=== PATIENT | female | born 1965 | race Caucasian/White ===

== ENCOUNTER 2024-09-28 21:42 | Inpatient (IN) | payer MEDICARE ==
[2024-09-28] MEDS: PROVENTIL 2.5 MG/3 ML NEB IH PRN (22:26)
--- NOTE | 2024-09-28 23:12 | PCM.HP ---
History of Present Illness - Chief Complaint Chief Complaint: Shortness of breath Date: 09/28/24 History of Present Illness: is a 59 year old female Past medical history significant for asthma/COPD, home oxygen 2 L as per need only, hypertension who initially p resented to [facility] ER for shortness of breath for last 5 days. Patient told me she started having fever for 3 days with productive cough. She did complain of some nausea vomiting but no diarrhea. She was desaturating the ER and has to be placed on oxygen. As far as her lab workup concern it was remarkable for leukocytosis of WBCs around 14. Chest x-ray significant for left lower lobe pneumonia and she was positive for influenza A. At the time of my encounter she was on 6 L oxygen was in respiratory distress but denied having any chest pain., Son was at bedside discussed plan of care in detail - Review of Systems All Other Systems: Reviewed and Negative Medications & Allergies Allergies/Adverse Reactions: Allergies Allergy/AdvReac Type Severity Reaction Status Date / Time codeine Allergy Verified 09/28/24 23:51 dextromethorphan Allergy Verified 09/28/24 23:51 hydromorphone Allergy Verified 09/28/24 23:48 loratadine [From Claritin] Allergy Verified 09/28/24 23:51 Significant Family History: no pertinent family hx - Social History Smoking Status: Former smoker Exposure to second hand smoke: No - Social Determinants of Health Will the patient participate in the screening: Yes Do you worry about a steady place to live?: No Do you have any problems with any of the following?: No known problems In the past 12 months,have you had to go without utilities?: No Have you or anyone in your house had to go without enough: No Transportation Issues: No Has anyone in your support network made you feel unsafe?: No Does the patient want assistance with any of the above?: No - Physical Exam Vital Signs: Vital Signs - 24 hr Temp Pulse Resp Pulse Ox 09/28/24 22:27 72 18 94 L 09/28/24 21:42 97.6 F 87 24 97 Additional Findings: 09/28/24 23:11 HEENT Middle aged, average built in resp distress on 6 liters oxygen NECK Supple,no thyromegaly, CVS S1+S2 + 0, no murmers RESP Bilateral equal air entry with Crepts/Wheezes heard GIT Soft non tender,non distended Skin, No rah, no Bruises LEGS No Edema PSYCH Normal,mood, judgement and insight NEURO AOX3, no focal deficit Results - Other Procedures and Tests Respiratory Therapy 09/28/24 22:05 Respiratory Therapy Assessment DAILY 09/28/24 22:09 Respiratory MDI BID 09/28/24 22:11 Oxygen Oxymizer LPM 11 lpm Assessment/Plan (1) COPD with acute exacerbation Current Visit: Yes Status: Acute Code(s): J44.1 - CHRONIC OBSTRUCTIVE PULMONARY DISEASE W (ACUTE) EXACERBATION (2) Pneumonia Current Visit: Yes Status: Acute Code(s): J18.9 - PNEUMONIA, UNSPECIFIED ORGANISM (3) Pneumonia Current Visit: Yes Status: Acute Code(s): J18.9 - PNEUMONIA, UNSPECIFIED ORGANISM (4) Influenza A Current Visit: Yes Status: Acute Code(s): J10.1 - FLU DUE TO OTH IDENT INFLUENZA VIRUS W OTH RESP MANIFEST Telemedicine Encounter - Telemedicine Encounter Telemedicine Encounter: The entirety of this encounter was performed via TelemedicineThis visit was performed using real-time audio and video connection between my location and thepatients locationwith the assistance of a surrogateat the patients location. Written or verbal consent was obtained from the patient/guardian to perform this visit usingShoppinPalcine technology. Any patient questions regarding the telemedicine interaction were answered. Acute hypoxemic respiratory failure Patient is currently on 6 L oxygen Etiology seems underlying COPD/pneumonia Will check troponin, BNP Will check ABG stat Continue telemonitoring Acute COPD exacerbation Continue breathing therapy, added Pulmicort Continue antibiotics Continue steroids Left lung pneumonia As per chest x-ray from OSH Will check procalcitonin/Ct chest for further evaluation Strep pneumonia and Legionella Continue ceftriaxone/azithromycin Influenza A Patient was tested positive influenza A at outside facility Continue Tamiflu 75 mg twice daily #1/ Hypertension Blood pressure stable Will resume home blood pressure meds if needed DVT prophylaxis SCD/Lovenox CODE STATUS full Discharging pending clinical stability. I have reviewed patient lab orders admitting in detail all question and concerns were addressed
[2024-09-28] MEDS ORDERED: APRESOLINE 20 MG/ML INJ IV PRN (23:19)
[2024-09-29 00:01] LABS: A-aADO2 592; ABG HEMOGLOBIN 13.3; ABG POTASSIUM 3.4 (3.5-5.1); ABG SITE RIGHT BRACHIAL; ALLEN TEST OK? YES; ARTERIAL BLD GAS O2 SATURATION 98.2 % (95-100); ARTERIAL BLOOD GAS BASE EXCESS 2.1 (-2.0-2.0); ARTERIAL BLOOD GAS FIO2 100 %; ARTERIAL BLOOD GAS PCO2 34 mmHg (35-45); ARTERIAL BLOOD GAS PO2 79 mmHg (75-100); ARTERIAL BLOOD GAS pH 7.48 (7.35-7.45); CARBOXYHEMOGLOBIN 3.8 % THgb (0.0-6.9); HCO3- 25.3 (22-28); HGB O2 SAT 93.7 g/dF (94-100); Methhemoglobin 0.8 % (1.4-1.5); paO2 pAO1 0.12
[2024-09-29] MEDS: TYLENOL 325 MG PO PRN (00:10)
[2024-09-29] MEDS: Zofran 4 MG/2 ML VIAL IV PRN (00:11)
[2024-09-29 00:39] LABS: Creatinine 1 0.43 mg/dL (0.52-1.04); EST GLOMERULAR FILTRATION RATE 110.6 ML/MIN; Potassium 3.5 mmol/L (3.5-5.1)
[2024-09-29 00:56] LABS: NT PRO BNPII 203 pg/mL (<300); PROCALCITONIN 0.479 ng/mL (0.030-0.080); TROPONIN < 0.012 ng/mL (0.000-0.033)
--- NOTE | 2024-09-29 03:28 | XRAY ---
CLINICAL HISTORY: Evaluate PNA COMPARISON: None. TECHNIQUE: Contiguous axial images were obtained from the neck base through the upper abdomen without contrast. In addition, sagittal and coronal reconstructions were performed to potentially increase the sensitivity for the detection of disease. CT scan was performed according to ALARA (as low as reasonable achievable). FINDINGS: Multifocal patchy nodular consolidations with ground-glass opacities are noted involving right middle lobe, lingula, medial segment of right lower lobe and left lower lobe. The central airways are patent. There are no pleural effusions. No pneumothorax is seen. Evaluation of the mediastinum and denice is limited due to the lack of intravenous contrast. No axillary or mediastinal adenopathy is identified. The thyroid is unremarkable. The heart, aorta, and pulmonary arteries are of normal size and configuration. There are no appreciable coronary artery and aortic atherosclerotic calcifications. No pericardial effusion is identified. Imaged portions of the upper abdomen are unremarkable. No aggressive appearing osseous lesions are identified. IMPRESSION: 1. Multifocal patchy nodular consolidations with ground-glass opacities are noted involving right middle lobe, lingula, medial segment of right lower lobe and left lower lobe.- possibility of infective etiology. Electronically Signed by: Eliu Lloyd MD. (09/29/2024 03:24:43 EST)
[2024-09-29] MEDS: DUONEB 0.5-3 MG/3 ml Neb IH SCH (04:22)
[2024-09-29 05:56] LABS: Hematocrit 36.8 % (34.1-44.9); Hemoglobin 12.1 g/dL (11.2-15.7); Mean Cell Volume 100.8 fL (79.4-94.8); Mean Corpuscular Hemoglobin 33.2 pg (25.6-32.2); Mean Corpuscular Hgb Concent. 32.9 g/dL (32.2-35.5); Mean Platelet Volume 11.1 fL (9.4-12.3); Platelet Count 161 x10^3/uL (182-369); Red Blood Count 3.65 x10^6/uL (3.93-5.22); Red Cell Distribution Width 12.5 % (11.7-14.4); White Blood Count 16.7 x10^3/uL (3.98-10.04)
[2024-09-29] MEDS: PULMICORT 0.5 MG/2 ML RESPULES IH SCH (06:59)
[2024-09-29] MEDS ORDERED: Advair Hfa 115/21 Common canister IH SCH (07:00)
[2024-09-29 07:31] LABS: ANION GAP 15.4 MEQ/L (5-15); Calcium 9.3 mg/dL (8.4-10.2); Creatinine 1 0.51 mg/dL (0.52-1.04); EST GLOMERULAR FILTRATION RATE 106.1 ML/MIN; Potassium 3.4 mmol/L (3.5-5.1)
[2024-09-29] MEDS ORDERED: Sterile H2O 10 ml IJ ONE (07:43)
[2024-09-29] MEDS: solu-MEDROL IV SCH (08:15)
[2024-09-29] MEDS: Sodium Chloride 0.9% 1000 ML 1,000 ML IV SCH (08:37)
[2024-09-29] MEDS ORDERED: MEDICATION INTERVENTION MC SCH (10:00)
[2024-09-29] MEDS ORDERED: NON-FORMULARY ITEM (Fluticasone/Umeclidin/Vilanter [Trelegy Ellipta 200-62.5-25] 1 EACH Bl IH SCH (10:00)
[2024-09-29] MEDS ORDERED: Spiriva 18 Mcg/Cap Inhaler IH SCH (10:00)
[2024-09-29] MEDS: ENOXAPARIN SODIUM SQ SCH (10:06)
[2024-09-29] MEDS: Klor Con PO ONE (10:06)
[2024-09-29] MEDS: ROCEPHIN 2 GM/100 ML NACL 2 GM/100 ML IVPB IV SCH (10:06)
[2024-09-29] MEDS: Tamiflu 75MG Capsule PO ONE (10:07)
[2024-09-29] MEDS: Protonix 40MG Tablet PO SCH (10:07)
[2024-09-29] MEDS: Zithromax 500 MG/ 250 ML NaCl Premix 500 MG/250 ML IVPB IV SCH (10:08)
[2024-09-29] MEDS: MAG-OX 400 PO SCH (10:12)
--- NOTE | 2024-09-29 13:38 | PCM.NOTE ---
Date and Time: 09/29/24 6977 Subjective Assessment: Ms. Moody is a 59-year-old female with a medical history significant for asthma, COPD, home oxygen use at 2L as needed, and hypertension. She initially presented to the [facility] ER with shortness of breath for the past 5 days, accompanied by a 3-day history of fever and productive cough. She also reported some nausea and vomiting but no diarrhea. Upon arrival, she was desaturating and required oxygen supplementation. Lab work revealed leukocytosis with a WBC count of approximately 14. A chest X-ray showed left lower lobe pneumonia, and she tested positive for Influenza A. On admission, she was receiving 6L of oxygen and was in respiratory distress, although she denied any chest pain. Her son was present at the bedside and the plan of care was discussed with him in detail. Ms. Moody continues to require 12L of oxygen via an oxymizer. She is being treated for pneumonia and Influenza A with IV antibiotics, Tamiflu, steroids, Advair, and DuoNebs. Sputum and blood cultures are pending. Her potassium was 3.4, and replacement was given. Her WBC count is improving at 16.7. She denies chest pain, abdominal pain, nausea, vomiting, or diarrhea. - Review of Systems Constitutional: No Fever, No Chills Eyes: No Symptoms Ears, Nose, & Throat: No Symptoms Respiratory: Cough, Short Of Breath Cardiac: No Chest Pain, No Edema, No Syncope Abdominal/Gastrointestinal: No Abdominal Pain, No Nausea, No Vomiting, No Diarrhea Genitourinary Symptoms: No Dysuria Musculoskeletal: No Back Pain, No Neck Pain Skin: No Rash Neurological: No Dizziness, No Focal Weakness, No Sensory Changes Psychological: No Symptoms Endocrine: No Symptoms Hematologic/Lymphatic: No Symptoms Immunological/Allergic: No Symptoms Objective Exam General Appearance: no apparent distress, alert Neurologic Exam: alert, oriented x 3, cooperative, normal mood/affect, nml cerebellar function, sensation nml, No motor deficits Skin Exam: normal color, warm, dry Eye Exam: PERRL, EOMI, eyes nml inspection Ears, Nose, Throat Exam: normal ENT inspection, pharynx normal, moist mucous membranes Neck Exam: normal inspection, non-tender, supple, full range of motion Respiratory Exam: diminished breath sounds, No respiratory distress Cardiovascular Exam: regular rate/rhythm, normal heart sounds Gastrointestinal/Abdomen Exam: soft, No tenderness, No mass Extremity Exam: normal inspection, normal range of motion Back Exam: normal inspection, normal range of motion, No CVA tenderness, No vertebral tenderness Pelvic Exam: deferred Rectal Exam: deferred Objective Data Vital Signs: Vital Signs - 24 hr Temp Pulse Resp BP Pulse Ox 09/29/24 11:39 97.6 F 77 16 110/63 96 09/29/24 11:26 73 16 96 09/29/24 10:57 85 20 09/29/24 10:48 90 16 91 L 09/29/24 07:33 97.6 F 85 20 127/79 91 L 09/29/24 05:44 82 16 98 09/29/24 04:00 97.6 F 68 24 135/91 97 09/28/24 22:27 72 18 94 L 09/28/24 21:42 97.6 F 87 24 97 Pain Assessment - Last Documented Pain Intensity 0 Pain Scale Used 0-10 Pain Scale Intake and Output: Intake & Output 09/27/24 09/28/24 09/29/24 09/30/24 11:59 11:59 11:59 11:59 Intake Total 720 Balance 720 Weight 74 kg Lab Results: Lab Results-Last 24 Hours 09/28/24 09/28/24 09/28/24 Range/Units 23:15 23:57 23:57 WBC (3.98-10.04) x10^3/uL RBC (3.93-5.22) x10^6/uL Hgb (11.2-15.7) g/dL Hct (34.1-44.9) % MCV (79.4-94.8) fL MCH (25.6-32.2) pg MCHC (32.2-35.5) g/dL RDW (11.7-14.4) % Plt Count (182-369) x10^3/uL MPV (9.4-12.3) fL Puncture Site RIGHT BRACHIAL pCO2 34 L (35-45) mmHg pO2 79 (75-100) mmHg Base Excess 2.1 H (-2.0-2.0) O2 Saturation 93.7 L (94-100) g/dF ABG pH 7.48 H (7.35-7.45) ABG HCO3 25.3 (22-28) ABG O2 Sat (Measured) 98.2 (95-100) % Adolph Test YES A-a Gradient 592 a/A Ratio 0.12 Hemoglobin 13.3 Carboxyhemoglobin 3.8 (0.0-6.9) % THgb Methemoglobin 0.8 L (1.4-1.5) % Potassium 3.4 L 3.5 (3.5-5.1) Temperature 37.0 C POC O2 Flow Rate 100 % Sodium 136 (135-145) mmol/L Chloride 101 (98-107) mmol/L Carbon Dioxide 21 L (22-30) mmol/L Anion Gap 17.0 H (5-15) MEQ/L BUN 9 (7-17) mg/dL Creatinine 0.43 L (0.52-1.04) mg/dL Estimated GFR 110.6 ML/MIN Glucose 182 H (74-106) mg/dL Hemoglobin A1c (4.5-6.0) % Lactic Acid (0.4-2.0) Calcium 9.0 (8.4-10.2) mg/dL Magnesium (1.6-2.3) mg/dL Troponin I < 0.012 (0.000-0.033) ng/mL NT-Pro-B Natriuret Pep 203 (<300) pg/mL Procalcitonin 0.479 H (0.030-0.080) ng/mL 09/29/24 09/29/24 09/29/24 Range/Units 04:27 04:27 04:27 WBC 16.7 H (3.98-10.04) x10^3/uL RBC 3.65 L (3.93-5.22) x10^6/uL Hgb 12.1 (11.2-15.7) g/dL Hct 36.8 (34.1-44.9) % MCV 100.8 H (79.4-94.8) fL MCH 33.2 H (25.6-32.2) pg MCHC 32.9 (32.2-35.5) g/dL RDW 12.5 (11.7-14.4) % Plt Count 161 L (182-369) x10^3/uL MPV 11.1 (9.4-12.3) fL Puncture Site pCO2 (35-45) mmHg pO2 (75-100) mmHg Base Excess (-2.0-2.0) O2 Saturation (94-100) g/dF ABG pH (7.35-7.45) ABG HCO3 (22-28) ABG O2 Sat (Measured) (95-100) % Adolph Test A-a Gradient a/A Ratio Hemoglobin Carboxyhemoglobin (0.0-6.9) % THgb Methemoglobin (1.4-1.5) % Potassium 3.4 L (3.5-5.1) Temperature C POC O2 Flow Rate % Sodium 137 (135-145) mmol/L Chloride 102 (98-107) mmol/L Carbon Dioxide 23 (22-30) mmol/L Anion Gap 15.4 H (5-15) MEQ/L BUN 12 (7-17) mg/dL Creatinine 0.51 L (0.52-1.04) mg/dL Estimated GFR 106.1 ML/MIN Glucose 157 H (74-106) mg/dL Hemoglobin A1c (4.5-6.0) % Lactic Acid (0.4-2.0) Calcium 9.3 (8.4-10.2) mg/dL Magnesium 2.0 (1.6-2.3) mg/dL Troponin I (0.000-0.033) ng/mL NT-Pro-B Natriuret Pep (<300) pg/mL Procalcitonin (0.030-0.080) ng/mL 09/29/24 09/29/24 Range/Units 04:57 07:54 WBC (3.98-10.04) x10^3/uL RBC (3.93-5.22) x10^6/uL Hgb (11.2-15.7) g/dL Hct (34.1-44.9) % MCV (79.4-94.8) fL MCH (25.6-32.2) pg MCHC (32.2-35.5) g/dL RDW (11.7-14.4) % Plt Count (182-369) x10^3/uL MPV (9.4-12.3) fL Puncture Site pCO2 (35-45) mmHg pO2 (75-100) mmHg Base Excess (-2.0-2.0) O2 Saturation (94-100) g/dF ABG pH (7.35-7.45) ABG HCO3 (22-28) ABG O2 Sat (Measured) (95-100) % Adolph Test A-a Gradient a/A Ratio Hemoglobin Carboxyhemoglobin (0.0-6.9) % THgb Methemoglobin (1.4-1.5) % Potassium (3.5-5.1) Temperature C POC O2 Flow Rate % Sodium (135-145) mmol/L Chloride (98-107) mmol/L Carbon Dioxide (22-30) mmol/L Anion Gap (5-15) MEQ/L BUN (7-17) mg/dL Creatinine (0.52-1.04) mg/dL Estimated GFR ML/MIN Glucose (74-106) mg/dL Hemoglobin A1c 5.30 (4.5-6.0) % Lactic Acid 1.5 (0.4-2.0) Calcium (8.4-10.2) mg/dL Magnesium (1.6-2.3) mg/dL Troponin I (0.000-0.033) ng/mL NT-Pro-B Natriuret Pep (<300) pg/mL Procalcitonin (0.030-0.080) ng/mL Radiology Exams: Radiology Procedures Category Date Time Status CHEST WITHOUT CONTRAST [CT] Routine Exams 09/28/24 23:21 Completed Assessment/Plan (1) Pneumonia Current Visit: Yes Status: Acute Assessment & Plan: - Rocephin, Zithromycin, Advari, duonebs, steroids. - 12 L oxymizer- baseline 2lNC - CBC. CMP reviewed - WBC 16.7 - Lactic acid 1.5 - Follows Pulm in [place] - Sputum and BC x2 pending - tele - IVF - Procal 0.479 - Chest CT: IMPRESSION: 1. Multifocal patchy nodular consolidations with ground-glass opacities are noted involving right middle lobe, lingula, medial segment of right lower lobe and left lower lobe.- possibility of infective etiology. Code(s): J18.9 - PNEUMONIA, UNSPECIFIED ORGANISM (2) COPD with acute exacerbation Current Visit: Yes Status: Acute Assessment & Plan: - Rocephin, Zithromycin, Advari, duonebs, steroids. - 12 L oxymizer- baseline 2lNC - CBC. CMP reviewed - Lactic acid 1.5 - Follows Pulm in [place] - Sputum and BC x2 pending - tele Code(s): J44.1 - CHRONIC OBSTRUCTIVE PULMONARY DISEASE W (ACUTE) EXACERBATION (3) Influenza A Current Visit: Yes Status: Acute Assessment & Plan: - Tamiflu Code(s): J10.1 - FLU DUE TO OTH IDENT INFLUENZA VIRUS W OTH RESP MANIFEST (4) Dehydration Current Visit: Yes Status: Acute Assessment & Plan: - Hold lasix - anion gap 15.4 - IVF Code(s): E86.0 - DEHYDRATION (5) Hypokalemia Current Visit: Yes Status: Acute Assessment & Plan: - K+ 3.4- replaced- trend Code(s): E87.6 - HYPOKALEMIA (6) Thrombocytopenia Current Visit: Yes Status: Acute Assessment & Plan: - PLT 161- trend - Consdier OP f/u - Likely 2:2 infection VTE: Lovenox PPI: Protonix Next of KIN: Son D/C plan: 2-3 days Code status: Full
[2024-09-29] MEDS ORDERED: LASIX 20 MG PO PRN (13:43)
[2024-09-29] MEDS: solu-MEDROL 40 MG, Sterile H2O 10 ml 1 ML IV SCH (13:45)
[2024-09-29] MEDS: OSELTAMIVIR PHOSPHATE 30 MG CAP PO SCH (21:56)
[2024-09-30 05:57] LABS: Hematocrit 32.6 % (34.1-44.9); Hemoglobin 10.7 g/dL (11.2-15.7); Mean Cell Volume 101.9 fL (79.4-94.8); Mean Corpuscular Hemoglobin 33.4 pg (25.6-32.2); Mean Corpuscular Hgb Concent. 32.8 g/dL (32.2-35.5); Mean Platelet Volume 11.2 fL (9.4-12.3); Platelet Count 206 x10^3/uL (182-369); Red Cell Distribution Width 12.9 % (11.7-14.4)
[2024-09-30 07:03] LABS: ALBUMIN 3.4 g/dL (3.5-5.0); ANION GAP 10.9 MEQ/L (5-15); BILIRUBIN,TOTAL 0.4 mg/dL (0.2-1.3); Calcium 8.8 mg/dL (8.4-10.2); Creatinine 1 0.42 mg/dL (0.52-1.04); EST GLOMERULAR FILTRATION RATE 111.2 ML/MIN; MAGNESIUM 2.2 mg/dL (1.6-2.3); Potassium 3.6 mmol/L (3.5-5.1); Total Protein 6.2 g/dL (6.3-8.2)
--- NOTE | 2024-09-30 07:43 | PCM.NOTE ---
Date and Time: 09/30/24 0742 Subjective Assessment: 09/29/24 Ms. Moody is a 59-year-old female with a medical history significant for asthma, COPD, home oxygen use at 2L as needed, and hypertension. She initially presented to the [facility] ER with shortness of breath for the past 5 days, accompanied by a 3-day history of fever and productive cough. She also reported some nausea and vomiting but no diarrhea. Upon arrival, she was desaturating and required oxygen supplementation. Lab work revealed leukocytosis with a WBC count of approximately 14. A chest X-ray showed left lower lobe pneumonia, and she tested positive for Influenza A. On admission, she was receiving 6L of oxygen and was in respiratory distress, although she denied any chest pain. Her son was present at the bedside and the plan of care was discussed with him in detail. Ms. Moody continues to require 12L of oxygen via an oxymizer. She is being treated for pneumonia and Influenza A with IV antibiotics, Tamiflu, steroids, Advair, and DuoNebs. Sputum and blood cultures are pending. Her potassium was 3.4, and replacement was given. Her WBC count is improving at 16.7. She denies chest pain, abdominal pain, nausea, vomiting, or diarrhea. 09/30/24 Pt resting in bed. She is down to 6L oxymizer and labs overall improving. Baseline 2lNC at HS. IVF stopped. Hypokalemia resolved. PT to eval for activity intolerance. Sputum culture pending. BC x2 negative. Continue IV antibiotics, Tamiflu, steroids, Advair, and DuoNebs for pneumonia and Influenza A. She continues to feel SOB but wants to d/c home with when ready. She denies CP, abdominal pain, nausea, vomiting, or diarrhea. - Review of Systems Constitutional: Weakness, No Fever, No Chills Eyes: No Symptoms Ears, Nose, & Throat: No Symptoms Respiratory: Cough, Short Of Breath Cardiac: No Chest Pain, No Edema, No Syncope Abdominal/Gastrointestinal: No Abdominal Pain, No Nausea, No Vomiting, No Diarrhea Genitourinary Symptoms: No Dysuria Musculoskeletal: No Back Pain, No Neck Pain Skin: No Rash Neurological: No Dizziness, No Focal Weakness, No Sensory Changes Psychological: No Symptoms Endocrine: No Symptoms Hematologic/Lymphatic: No Symptoms Immunological/Allergic: No Symptoms Objective Exam General Appearance: no apparent distress, alert Neurologic Exam: alert, oriented x 3, cooperative, normal mood/affect, nml cerebellar function, sensation nml, motor weakness, No motor deficits Skin Exam: normal color, warm, dry Eye Exam: PERRL, EOMI, eyes nml inspection Ears, Nose, Throat Exam: normal ENT inspection, pharynx normal, moist mucous membranes Neck Exam: normal inspection, non-tender, supple, full range of motion Respiratory Exam: diminished breath sounds, No respiratory distress Cardiovascular Exam: regular rate/rhythm, normal heart sounds Gastrointestinal/Abdomen Exam: soft, No tenderness, No mass Extremity Exam: normal inspection, normal range of motion Back Exam: normal inspection, normal range of motion, No CVA tenderness, No vertebral tenderness Pelvic Exam: deferred Rectal Exam: deferred Objective Data Vital Signs: Vital Signs - 24 hr Temp Pulse Resp BP Pulse Ox 09/30/24 07:22 97.8 F 67 18 122/69 99 09/30/24 07:21 69 18 97 09/30/24 04:00 98.3 F 72 20 121/69 100 09/30/24 02:57 81 18 99 09/30/24 00:00 97.2 F 21 121/62 95 09/29/24 23:15 81 18 100 09/29/24 20:00 97.8 F 74 22 122/75 98 09/29/24 19:13 77 20 98 09/29/24 16:00 98.6 F 82 16 117/66 97 09/29/24 15:37 63 16 99 09/29/24 11:39 97.6 F 77 16 110/63 96 09/29/24 11:26 73 16 96 09/29/24 10:57 85 20 09/29/24 10:48 90 16 91 L Pain Assessment - Last Documented Pain Intensity 0 Pain Scale Used 0-10 Pain Scale Intake and Output: Intake & Output 09/27/24 09/28/24 09/29/24 09/30/24 11:59 11:59 11:59 11:59 Intake Total 720 1965 Balance 720 1965 Weight 74 kg Lab Results: Lab Results-Last 24 Hours 09/29/24 09/29/24 09/29/24 Range/Units 04:27 04:57 07:54 WBC (3.98-10.04) x10^3/uL RBC (3.93-5.22) x10^6/uL Hgb (11.2-15.7) g/dL Hct (34.1-44.9) % MCV (79.4-94.8) fL MCH (25.6-32.2) pg MCHC (32.2-35.5) g/dL RDW (11.7-14.4) % Plt Count (182-369) x10^3/uL MPV (9.4-12.3) fL Sodium (135-145) mmol/L Potassium (3.5-5.1) mmol/L Chloride (98-107) mmol/L Carbon Dioxide (22-30) mmol/L Anion Gap (5-15) MEQ/L BUN (7-17) mg/dL Creatinine (0.52-1.04) mg/dL Estimated GFR ML/MIN Glucose (74-106) mg/dL Hemoglobin A1c 5.30 (4.5-6.0) % Lactic Acid 1.5 (0.4-2.0) Calcium (8.4-10.2) mg/dL Magnesium 2.0 (1.6-2.3) mg/dL Total Bilirubin (0.2-1.3) mg/dL AST (14-36) U/L ALT (0-35) U/L Alkaline Phosphatase (38-126) U/L Serum Total Protein (6.3-8.2) g/dL Albumin (3.5-5.0) g/dL 09/30/24 09/30/24 Range/Units 04:39 04:39 WBC 15.0 H (3.98-10.04) x10^3/uL RBC 3.20 L (3.93-5.22) x10^6/uL Hgb 10.7 L (11.2-15.7) g/dL Hct 32.6 L (34.1-44.9) % MCV 101.9 H (79.4-94.8) fL MCH 33.4 H (25.6-32.2) pg MCHC 32.8 (32.2-35.5) g/dL RDW 12.9 (11.7-14.4) % Plt Count 206 (182-369) x10^3/uL MPV 11.2 (9.4-12.3) fL Sodium 142 (135-145) mmol/L Potassium 3.6 (3.5-5.1) mmol/L Chloride 107 (98-107) mmol/L Carbon Dioxide 28 (22-30) mmol/L Anion Gap 10.9 (5-15) MEQ/L BUN 13 (7-17) mg/dL Creatinine 0.42 L (0.52-1.04) mg/dL Estimated GFR 111.2 ML/MIN Glucose 146 H (74-106) mg/dL Hemoglobin A1c (4.5-6.0) % Lactic Acid (0.4-2.0) Calcium 8.8 (8.4-10.2) mg/dL Magnesium 2.2 (1.6-2.3) mg/dL Total Bilirubin 0.40 (0.2-1.3) mg/dL AST 43 H (14-36) U/L ALT 43 H (0-35) U/L Alkaline Phosphatase 70 (38-126) U/L Serum Total Protein 6.2 L (6.3-8.2) g/dL Albumin 3.4 L (3.5-5.0) g/dL Radiology Exams: Radiology Procedures Category Date Time Status CHEST WITHOUT CONTRAST [CT] Routine Exams 09/28/24 23:21 Completed Multi-Disciplinary Progress Notes: Multi-Disciplinary Progress Notes 09/30/24 07:27 Respiratory Note by Tiffany Hernandez PT 97% ON 6LPM OXYMIZER, LOWERING O2 TO 5LPM VIA OXYMIZER. Initialized on 09/30/24 07:27 - END OF NOTE Assessment/Plan (1) Pneumonia Current Visit: Yes Status: Acute Code(s): J18.9 - PNEUMONIA, UNSPECIFIED ORGANISM (2) COPD with acute exacerbation Current Visit: Yes Status: Acute Code(s): J44.1 - CHRONIC OBSTRUCTIVE PULMONARY DISEASE W (ACUTE) EXACERBATION (3) Influenza A Current Visit: Yes Status: Acute Code(s): J10.1 - FLU DUE TO OTH IDENT INFLUENZA VIRUS W OTH RESP MANIFEST (4) Dehydration Current Visit: Yes Status: Acute Code(s): E86.0 - DEHYDRATION (5) Hypokalemia Current Visit: Yes Status: Acute Code(s): E87.6 - HYPOKALEMIA (6) Thrombocytopenia Current Visit: Yes Status: Acute Assessment & Plan: (1) Pneumonia Current Visit: Yes Status: Acute Assessment & Plan: - Rocephin, Zithromycin, Advari, duonebs, steroids. - 12 L oxymizer- baseline 2lNC - CBC. CMP reviewed - WBC 16.7 - Lactic acid 1.5 - Follows Pulm in [place] - Sputum and BC x2 pending - tele - IVF - Procal 0.479 - Chest CT: IMPRESSION: 1. Multifocal patchy nodular consolidations with ground-glass opacities are noted involving right middle lobe, lingula, medial segment of right lower lobe and left lower lobe.- possibility of infective etiology. 09/30 - sputum culture pending - WBC 15.0 improved - 8L oxymizer - tessalon added - CBC, CMP reviewed Code(s): J18.9 - PNEUMONIA, UNSPECIFIED ORGANISM (2) COPD with acute exacerbation Current Visit: Yes Status: Acute Assessment & Plan: - Rocephin, Zithromycin, Advari, duonebs, steroids. - 12 L oxymizer- baseline 2lNC - CBC. CMP reviewed - Lactic acid 1.5 - Follows Pulm in [place] - Sputum and BC x2 pending - tele 09/30 - 8L oxymizer Code(s): J44.1 - CHRONIC OBSTRUCTIVE PULMONARY DISEASE W (ACUTE) EXACERBATION (3) Influenza A Current Visit: Yes Status: Acute Assessment & Plan: - Tamiflu Code(s): J10.1 - FLU DUE TO OTH IDENT INFLUENZA VIRUS W OTH RESP MANIFEST (4) Dehydration Current Visit: Yes Status: Acute Assessment & Plan: - Hold lasix - anion gap 15.4 - IVF Code(s): E86.0 - DEHYDRATION (5) Hypokalemia Current Visit: Yes Status: Acute Assessment & Plan: - K+ 3.4- replaced- trend 09/30 - resolved Code(s): E87.6 - HYPOKALEMIA (6) Thrombocytopenia Current Visit: Yes Status: Acute Assessment & Plan: - PLT 161- trend - Consdier OP f/u - Likely 2:2 infection 09/30 - resolved VTE: Lovenox PPI: Protonix Next of KIN: Son D/C plan: 1-2 days Code status: Full
[2024-09-30] MEDS: Tessalon Perles 100 MG PO PRN (10:27)
[2024-09-30] MEDS: CLARITIN 10 MG PO SCH (10:27)
[2024-10-01 06:27] LABS: Hematocrit 32.4 % (34.1-44.9); Hemoglobin 10.7 g/dL (11.2-15.7); Mean Cell Volume 100.9 fL (79.4-94.8); Mean Corpuscular Hemoglobin 33.3 pg (25.6-32.2); Mean Platelet Volume 10.2 fL (9.4-12.3); Platelet Count 280 x10^3/uL (182-369); Red Blood Count 3.21 x10^6/uL (3.93-5.22); Red Cell Distribution Width 13.2 % (11.7-14.4)
[2024-10-01 07:46] LABS: ALBUMIN 3.3 g/dL (3.5-5.0); BILIRUBIN,TOTAL 0.4 mg/dL (0.2-1.3); Calcium 8.8 mg/dL (8.4-10.2); Creatinine 1 0.41 mg/dL (0.52-1.04); EST GLOMERULAR FILTRATION RATE 111.9 ML/MIN
[2024-10-01 07:48] LABS: Potassium 3.9 mmol/L (3.5-5.1)
[2024-10-01 07:49] LABS: ANION GAP 9.9 MEQ/L (5-15)
--- NOTE | 2024-10-01 12:45 | PCM.DS ---
Discharge Summary Date of Admission: 09/28/24 21:42 Date of Discharge: 10/01/24 Admitting Physician: KEVIN STEEN MD Primary Care Provider: NO FAMILY DOCTOR Allergies Allergies codeine Allergy (Verified 09/28/24 23:51) dextromethorphan Allergy (Verified 09/28/24 23:51) hydromorphone Allergy (Verified 09/28/24 23:48) Hospital Summary - Hospital Course Hospital Course: 09/29/24 Ms. Moody is a 59-year-old female with a medical history significant for asthma, COPD, home oxygen use at 2L as needed, and hypertension. She initially presented to the [facility] ER with shortness of breath for the past 5 days, accompanied by a 3-day history of fever and productive cough. She also reported some nausea and vomiting but no diarrhea. Upon arrival, she was desaturating and required oxygen supplementation. Lab work revealed leukocytosis with a WBC count of approximately 14. A chest X-ray showed left lower lobe pneumonia, and she tested positive for Influenza A. On admission, she was receiving 6L of oxygen and was in respiratory distress, although she denied any chest pain. Her son was present at the bedside and the plan of care was discussed with him in detail. Ms. Moody continues to require 12L of oxygen via an oxymizer. She is being treated for pneumonia and Influenza A with IV antibiotics, Tamiflu, steroids, Advair, and DuoNebs. Sputum and blood cultures are pending. Her potassium was 3.4, and replacement was given. Her WBC count is improving at 16.7. She denies chest pain, abdominal pain, nausea, vomiting, or diarrhea. 09/30/24 Pt resting in bed. She is down to 6L oxymizer and labs overall improving. Baseline 2lNC at HS. IVF stopped. Hypokalemia resolved. PT to eval for activity intolerance. Sputum culture pending. BC x2 negative. Continue IV antibiotics, Tamiflu, steroids, Advair, and DuoNebs for pneumonia and Influenza A. She continues to feel SOB but wants to d/c home with when ready. She denies CP, abdominal pain, nausea, vomiting, or diarrhea. 10/01/24 Pt resting in bed. She is feeling much better. She continues to require O2 at 3lNC 99%. RT to eval for home O2 needs. She normally only uses 2lNC at HS. Will continue OP antibiotics and steroids. Labs overall improved and she did well with PT. She denies CP, SOB, abd pain, N/V/D. - Vitals & Intake/Output Vital Signs: Vital Signs Temperature 97.8 F 10/01/24 08:00 Pulse Rate 80 10/01/24 10:11 Respiratory Rate 18 10/01/24 10:11 Blood Pressure 139/79 10/01/24 08:00 O2 Sat by Pulse Oximetry 98 10/01/24 10:11 Intake & Output: Intake & Output 09/29/24 09/30/24 10/01/24 10/02/24 11:59 11:59 11:59 11:59 Intake Total 720 2345 2230 Balance 720 2345 2230 Weight 74 kg 74 kg - Lab Result Diagrams: 10/01/24 04:34 10/01/24 04:34 Lab Results-Last 24 Hrs: Lab Results-Last 24 Hours 10/01/24 10/01/24 Range/Units 04:34 04:34 WBC 14.0 H (3.98-10.04) x10^3/uL RBC 3.21 L (3.93-5.22) x10^6/uL Hgb 10.7 L (11.2-15.7) g/dL Hct 32.4 L (34.1-44.9) % MCV 100.9 H (79.4-94.8) fL MCH 33.3 H (25.6-32.2) pg MCHC 33.0 (32.2-35.5) g/dL RDW 13.2 (11.7-14.4) % Plt Count 280 D (182-369) x10^3/uL MPV 10.2 (9.4-12.3) fL Sodium 141 (135-145) mmol/L Potassium 3.9 (3.5-5.1) mmol/L Chloride 106 (98-107) mmol/L Carbon Dioxide 29 (22-30) mmol/L Anion Gap 9.9 (5-15) MEQ/L BUN 14 (7-17) mg/dL Creatinine 0.41 L (0.52-1.04) mg/dL Estimated GFR 111.9 ML/MIN Glucose 140 H (74-106) mg/dL Calcium 8.8 (8.4-10.2) mg/dL Total Bilirubin 0.40 (0.2-1.3) mg/dL AST 28 (14-36) U/L ALT 38 H (0-35) U/L Alkaline Phosphatase 67 (38-126) U/L Serum Total Protein 6.0 L (6.3-8.2) g/dL Albumin 3.3 L (3.5-5.0) g/dL Micro Results-Entire Visit: Microbiology 09/30/24 08:55 Gram Stain - Final Sputum - Expectorant 09/28/24 23:59 Blood Culture - Preliminary Blood 09/28/24 23:57 Blood Culture - Preliminary Blood - Procedures and Test Procedures and Tests throughout Hospitalization: Therapy Orders & Screens 09/28/24 22:05 Respiratory Therapy Assessment DAILY Comment: 09/28/24 22:11 Oxygen Oxymizer LPM 3 lpm Comment: 09/30/24 07:46 PT Eval & Treat ( Order) ONCE Reason for Eval:: Activity intolerence, possible need for placement or home needs Diagnosis: PNEUMONIA, COPD, FLU A 09/30/24 12:13 Flutter Therapy UD Comment: Diagnosis: PNEUMONIA, COPD, FLU A Discharge Exam General Appearance: no apparent distress, alert Neurologic Exam: alert, oriented x 3, cooperative, normal mood/affect, nml cerebellar function, sensation nml, No motor deficits Eye Exam: PERRL, EOMI, eyes nml inspection Ears, Nose, Throat Exam: normal ENT inspection, pharynx normal, moist mucous membranes Neck Exam: normal inspection, non-tender, supple, full range of motion Respiratory Exam: normal breath sounds, lungs clear, No respiratory distress Cardiovascular Exam: regular rate/rhythm, normal heart sounds Gastrointestinal/Abdomen Exam: soft, No tenderness, No mass Pelvic Exam: deferred Rectal Exam: deferred Back Exam: normal inspection, normal range of motion, No CVA tenderness, No vertebral tenderness Extremity Exam: normal inspection, normal range of motion Skin Exam: normal color, warm, dry Final Diagnosis/Problem List - Final Discharge Diagnosis/Problem (1) Pneumonia Current Visit: Yes Status: Acute Code(s): J18.9 - PNEUMONIA, UNSPECIFIED ORG ANISM (2) COPD with acute exacerbation Current Visit: Yes Status: Acute Code(s): J44.1 - CHRONIC OBSTRUCTIVE PULMONARY DISEASE W (ACUTE) EXACERBATION (3) Influenza A Current Visit: Yes Status: Acute Code(s): J10.1 - FLU DUE TO OTH IDENT INFLUENZA VIRUS W OTH RESP MANIFEST (4) Dehydration Current Visit: Yes Status: Acute Code(s): E86.0 - DEHYDRATION (5) Hypokalemia Current Visit: Yes Status: Acute Code(s): E87.6 - HYPOKALEMIA (6) Thrombocytopenia Current Visit: Yes Status: Acute Assessment & Plan: (1) Pneumonia Current Visit: Yes Status: Acute Assessment & Plan: - Rocephin, Zithromycin, Advari, duonebs, steroids. - 12 L oxymizer- baseline 2lNC - CBC. CMP reviewed - WBC 16.7 - Lactic acid 1.5 - Follows Pulm in [place] - Sputum and BC x2 pending - tele - IVF - Procal 0.479 - Chest CT: IMPRESSION: 1. Multifocal patchy nodular consolidations with ground-glass opacities are noted involving right middle lobe, lingula, medial segment of right lower lobe and left lower lobe.- possibility of infective etiology. 09/30 - sputum culture pending - WBC 15.0 improved - 8L oxymizer - tessalon added - CBC, CMP reviewed 10/01 - RT eval for home O2 needs - On 3LNC 99% WBC 14.1 - CBC, CMP reviewed - D/C with antibiotics and steroids Code(s): J18.9 - PNEUMONIA, UNSPECIFIED ORGANISM (2) COPD with acute exacerbation Current Visit: Yes Status: Acute Assessment & Plan: - Rocephin, Zithromycin, Advari, duonebs, steroids. - 12 L oxymizer- baseline 2lNC - CBC. CMP reviewed - Lactic acid 1.5 - Follows Pulm in [place] - Sputum and BC x2 pending - tele 09/30 - 8L oxymizer 10/01 - 3lNC 99% Code(s): J44.1 - CHRONIC OBSTRUCTIVE PULMONARY DISEASE W (ACUTE) EXACERBATION (3) Influenza A Current Visit: Yes Status: Acute Assessment & Plan: - Tamiflu Code(s): J10.1 - FLU DUE TO OTH IDENT INFLUENZA VIRUS W OTH RESP MANIFEST (4) Dehydration Current Visit: Yes Status: Acute Assessment & Plan: - Hold lasix - anion gap 15.4 - IVF 09/30 - IVF stopped Code(s): E86.0 - DEHYDRATION (5) Hypokalemia Current Visit: Yes Status: Acute Assessment & Plan: - K+ 3.4- replaced- trend 09/30 - resolved Code(s): E87.6 - HYPOKALEMIA (6) Thrombocytopenia Current Visit: Yes Status: Acute Assessment & Plan: - PLT 161- trend - Consdier OP f/u - Likely 2:2 infection 09/30 - resolved - Discharge Discharge Date: 10/01/24 Disposition: Home, Self-Care Condition: Stable Prescriptions: New Oseltamivir Phosphate [Oseltamivir Phosphate 30 mg Cap] 30 mg PO BID 2 Days #4 cap Continue Magnesium Oxide 400 mg [Mag-Ox 400] 400 mg PO DAILY Fluticasone/Umeclidin/Vilanter [Trelegy Ellipta 200-62.5-25] 1 each IH DAILY Furosemide 20 mg [Lasix 20 mg] 20 mg PO UD PRN PRN Reason: OTHER Loratadine 10 mg [Claritin 10 mg] 10 mg PO DAILY Follow up with: MAHESH CASTRO [Other] - 10/14/24 8:30 am TY LONG MD [NON-STAFF PHY W/O PRIVILEGES] - Call for Appointment
[2024-10-01 12:57] VITALS: BP 139/83; PULSE 85; RESP 20; TEMP 98; O2SAT 93
== END 2024-10-01 14:58 | disposition home or self-care (01) | DRG 194 ==
LOC: OBSVTOIN 21:42 → MED SURG 21:42
PROVIDERS: ADMIT Internal Medicine; ATTEND Internal Medicine
DX: J18.9 Pneumonia, unspecified organism (principal); J44.1 Chronic obstructive pulmonary disease with (acute) exacerbation; J10.1 Influenza due to other identified influenza virus with other respiratory manifestations; E86.0 Dehydration; E87.6 Hypokalemia; D69.6 Thrombocytopenia, unspecified; I10 Essential (primary) hypertension; D72.829 Elevated white blood cell count, unspecified; J45.909 Unspecified asthma, uncomplicated; R11.2 Nausea with vomiting, unspecified; Z79.899 Other long term (current) drug therapy; Z99.81 Dependence on supplemental oxygen
CPT/HCPCS: 36415; 36600; 71250; 80048; 80053; 82375; 82803; 83036; 83605; 83735; 83880; 84145; 84484; 85027; 87040; 87070; 94640; 94667; 94668; 94760; 97110; 97162; 97530; Q3014; J0456; J0696; J1650; J2405; J2919; J7609; A9270-GY